=== PATIENT | male | born 2000 | race Caucasian/White ===

== ENCOUNTER 2020-08-11 21:45 | Emergency (ER) | payer MEDICAID ==
[~2020-08-11] VITALS: Ht 180.3 cm; Wt 70.3 kg
[~2020-08-11 21:45] MED LIST: ALBU6.7H8 IH; PRED20TA PO
[2020-08-11 22:03] VITALS: BP_SYST 138; BP_DIAS 109; BP_DIAS 113
--- NOTE | 2020-08-11 22:13 | ER.PDOC ---
General Chief Complaint: Eye Problems Stated Complaint: OBJECT IN EYE Time seen by MD: 22:10 Source: patient Exam Limitations: no limitations History of Present Illness Initial Comments This normally healthy 19-year-old man was working on concrete when a piece of ? concrete got stuck in the left eye. He has pain and excessive watering in the eye. He is not diabetic. He is out of date on tetanus immunization. This was the initial story which was quite vague when given by the patient. However when it became clear that the foreign body in the left cornea is deeply embedded I went back and requested the patient at length. It turns out that what the patient was doing was cutting off steel rebar in his backyard using a concrete saw with an 18 inch aggregate blade. Patient admits now that he was not wearing any eye covering and that flashes were going everywhere as he cut through the rebar. He now admits that it is likely that a piece of rebar is what got into the eye. Allergies: Coded Allergies: No Known Allergies (Unverified , 03/24/15) Home Meds Active Scripts Prednisone (PREDNISONE) 20 Mg Tablet, 3 TAB PO DAILY for 5 Days, #15 TAB Prov:TODD VASQUEZ MD 06/29/20 Albuterol Sulfate (PROVENTIL HFA) 6.7 Gm Hfa.aer.ad, 2 PUFF IH Q4HR PRN for WHEEZING, #1 INHALER Prov:TODD VASQUEZ MD 06/29/20 Past Medical History Medical History: asthma Surgical History: no surgical history Social History Alcohol Use: occassionally Drug Use: none Eyes: see HPI All Other Systems: Reviewed and Negative Physical Exam General Appearance: alert, mild distress Eyelid: nml inspection Conjunctiva/Sclera: (L) injected Corneas: foreign body (L), exam w/flurescein (L) EOM's: intact, no nystagmus Pupils: PERRL, nml accommodation Posterior Segments: (R) nml funduscopic, (L) nml funduscopic Head/ENT: nml inspection, pharynx nml Skin Exam: Normal Color Neck/Back: nml inspection Resp/CVS: no resp distress Abdomen: non-tender NEURO/PSYCH: oriented X3 Comments We have no slit-lamp in this emergency department or hospital. Using a hand- held ophthalmoscope with 20 diopters magnification I can clearly see the patient has an embedded metallic foreign body at the 8 PM area approximately 3 mm off the optical axis. Patient has no obvious flare but again I have no slit-lamp. There is no corneal edema. However the patient does have really remarkable conjunctival injection. Eye Procedure Eye Procedure : Anesthesia: Tetracaine Eye FB Removal: no with cotton swab; with needle; no with bartolo drill, no other Karel Lens: No Eye Irrigated w/ Saline (ccs): 50 Remaining Material: rust ring Intraocular Pressure (R) mm H Intraocular Pressure (L) mm H Measured By: tonopen Antibiotic Ointment/Drps Admin: left eye Progress 2 attempts were made to remove the embedded iron foreign body in the left cornea but no slit-lamp is available and removal was not able to be performed. The patient will need to be seen by an consumer electronics merchandiser tomorrow morning to remove the foreign body and rust drink. He is started on tobramycin ophthalmic solution every 2 hours tonight. See further notes on disposition at the end of the records. Please note that this computer program requires that I document intraocular pressures on both eyes using 1 of 3 methods but intraocular pressure was never measured on this patient who has no reason for increased pressure. The numbers above are bogus but are required so that I can get out of the screen and sign this record Results/Orders Results/Orders Orders - MARK RAHMAN MD Diph,Pertuss(Acell),Tet Vac/Pf (Adacel V (08/11/20 22:30) Diph,Pertuss(Acell),Tet Vac/Pf (Adacel V (08/11/20 22:36) Ct Orbits Wo Contrast (08/11/20 22:46) Ct Orbits Wo Contrast (08/11/20 23:40) Tobramycin (Tobrex) (08/12/20 00:30) Tobramycin/Dexamethasone (Tobramycin-Dex (08/12/20 00:08) Vital Signs Date Time Temp Pulse Resp B/P (MAP) Pulse Ox O2 Delivery O2 Flow Rate FiO2 08/12/20 00:16 90 16 149/106 (120) 98 08/11/20 22:03 98.2 76 16 138/113 (121) 99 Room Air 08/11/20 22:03 98.2 76 16 08/11/20 22:03 98.2 76 16 99 Administered Medications Medications (Trade) Dose Ordered Sig/Vikas Route PRN Reason Start Time Stop Time Status Last Admin Dose Admin Diphtheria/ Tetanus/Acell Pertussis (Adacel Vial) 0.5 ml ONCE ONCE IM 08/11/20 22:30 08/11/20 22:32 DC 08/11/20 22:39 0.5 ML Tobramycin Sulfate (Tobrex) 2 drops OT LEFTEYE 08/12/20 00:30 08/12/20 00:22 DC 08/12/20 00:10 2 DROPS Progress Progress Unsuccessful attempts to remove corneal foreign body left eye so patient is referred to Dr. Luisito Leblanc, ophthalmology in [place] for removal in the morning. I was able to speak with Dr. Leblanc who has kindly agreed to see the patient at 9 AM. After discussion with Dr. Leblanc I have ordered an orbital CT to exclude intraocular metallic foreign body missile. Considering the updated history indicating the mechanism of injury, this is a distinct possibility. CT scan is now back and awaiting formal interpretation, but I have reviewed the images and see no metallic foreign body intraocular. I went back and rechecked the foreign body with the ophthalmoscope and the patient has developed a small rust ring around what is obviously a piece of iron. As recommended by Dr. Leblanc, the patient will get tobramycin ophthalmic and pressure patch over the eye prior to discharge. We do not have ointment, just suspension. ER DEPART Departure Time of Disposition: 22:26 Disposition: 01 HOME / SELF CARE / HOMELESS Impression: Primary Impression: Foreign body of left cornea Condition: Improved Referrals: PCP,UNKNOWN (PCP) PRIMARY CARE PROVIDER Comments Tobramycin ophthalmic solution Duration or Time Spent with Pa: 25 minutes Return to Work/School Can a patient return to work?: No Problem Qualifiers Primary Impression: Foreign body of left cornea Encounter type: initial encounter Qualified Codes: T15.02XA - Foreign body in cornea, left eye, initial encounter MARK RAHMAN MD August 11, 2020 22:13
--- NOTE | 2020-08-11 22:25 | NUR ---
PT CUTTING RE-BAR WITH CONCRETE SAW, FO IN LEFT EYE. ERP AT BEDSIDE, ATTEMPT TO REMOVE UNSUCCESSFUL.
[2020-08-11] MEDS ORDERED: ADACEL VIAL IM ONE ×2 (22:30→22:36)
--- NOTE | 2020-08-11 23:28 | NUR ---
CT PT AMBULATED TO POV W/O DIFFICULTY.
--- NOTE | 2020-08-11 23:50 | NUR ---
EYE PAD X 2 W/ FOLDED 4 X 4 APPLIED WITH PRESSURE DRESSING. DISCUSSED WITH PT TO KEEP DRESSING ON UNITL FOLLOW UP WITH DR. HAMMOND (OPTH) PT VERBALIZED UNDERSTANDING.
[2020-08-12] MEDS: TOBREX LEFTEYE SCH ×2 (00:07→00:10)
[2020-08-12] MEDS ORDERED: TOBRAMYCIN-DEXAMETH OPHTH SUSP ONE (00:08)
--- NOTE | 2020-08-12 00:15 | NUR ---
DC INSTRUCTIONS GIVEN TO PT/SPOUSE. VERBALIZED UNDERSTANDING. CONTACT INFORMATION FOR FOLLOW UP TOMORROW IN [place] GIVEN TO PT IN DC INFO. PT AMBULATED TO POV W/OUT DIFFICULTY.
[2020-08-12 00:16] VITALS: BP 149/106
--- NOTE | 2020-08-12 00:16 | DIREP ---
PROCEDURE:CT ORBIT SELLA FOSSA EAR W/O COMPARISON:None. INDICATIONS:None provided TECHNIQUE:CT images were created without intravenous contrast. FINDINGS: GLOBES:Normal. EXTRAOCULAR MUSCLES:Normal. OPTIC NERVES:Normal. LACRIMAL GLANDS:Normal. SINUSES:Extensive mucosal thickening present in the right and left ethmoid and maxillary sinuses. Mild mucosal thickening is present in the right and left frontal and right sphenoid sinuses. OTHER:Negative. CONCLUSION:Prominent bilateral ethmoid and maxillary sinusitis. Mild bilateral frontal and right ethmoid sinusitis. Otherwise normal examination. Dictated by: Rickey An M.D. on 08/12/2020 at 00:09 AM
== END 2020-08-12 00:15 | disposition home or self-care (01) ==
LOC: ER 21:45
DX: T15.02XA Foreign body in cornea, left eye, initial encounter (principal); J45.909 Unspecified asthma, uncomplicated; Z79.52 Long term (current) use of systemic steroids; Z79.899 Other long term (current) drug therapy; X58.XXXA Exposure to other specified factors, initial encounter; Y93.89 Activity, other specified; Y92.89 Other specified places as the place of occurrence of the external cause; Y99.8 Other external cause status
CPT/HCPCS: 70480; 90471; 90715; 99284